=== PATIENT | male | born 2000 | race Hispanic/Latino ===

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

== ENCOUNTER 2018-01-17 20:46 | Inpatient (IN) | payer SELFPAY ==
[~2018-01-17] VITALS: Ht 185.4 cm; Wt 89.0 kg
[2018-01-17 21:33] LABS: IMMATURE GRANULOCYTES 0.3 % (0.0-1.0); MEAN CELL VOLUME 86.9 fL CALC (80.0-100.0); MEAN CORPUSCULAR HGB 29.4 pG CALC (26.0-32.0); MEAN CORPUSCULAR HGB CONC 33.9 g/L CALC (32.0-36.0); NEUT# 5.22 thou/uL (1.82-7.42); RED BLOOD COUNT 2.21 mill/uL (4.70-6.10); RED CELL DISTRI WIDTH 11.9 % (11.5-15.5)
[2018-01-17 21:43] LABS: HEMATOCRIT 19.2 % (39.0-50.0); HEMOGLOBIN 6.5 g/dl (14.0-18.0)
[2018-01-17 21:46] LABS: ALBUMIN 4.2 g/dL (3.2-5.0); BILIRUBIN, TOTAL 0.3 mg/dL (0.0-1.4); TOTAL PROTEIN 6.7 g/dL (6.3-8.2)
[2018-01-17 21:53] LABS: PROTHROMBIN TIME 11.3 SECONDS (9.0-12.5)
[2018-01-17 21:55] LABS: POTASSIUM 5.3 mmol/l (3.5-5.1)
[2018-01-17 21:56] LABS: CREATININE 25.6 mg/dL (0.7-1.3)
[2018-01-17 22:14] LABS: HEMOGLOBIN 6.4 g/dl (14.0-18.0)
[2018-01-17 22:15] LABS: HEMATOCRIT 18.7 % (39.0-50.0)
[2018-01-17 22:17] LABS: TSH, 3RD GENERATION 1.47 uIU/mL (0.47 - 4.68)
[2018-01-17 22:31] LABS: CREATININE 25.9 mg/dL (0.7-1.3)
[2018-01-17 23:16] LABS: URINE BILIRUBIN - DIPSTICK NEGATIVE (NEGATIVE); URINE BLOOD DIPSTICK SMALL (NEGATIVE); URINE CLARITY SL CLOUDY; URINE COLOR YELLOW; URINE GLUCOSE - DIPSTICK 100 mg/dL (NEGATIVE); URINE KETONE NEGATIVE (NEGATIVE); URINE LEUK ESTERASE NEGATIVE (NEGATIVE); URINE NITRITE - DIPSTICK NEGATIVE (Negative); URINE PH 6.5 (4.5-8.0); URINE PROTEIN - DIPSTICK >=300 mg/dL (NEG-TRACE); URINE SPECIFIC GRAVITY 1.015; URINE UROBILINOGEN - DIPSTICK 0.2 E.U./dL (0.2)
[2018-01-17 23:20] LABS: COCAINE NEGATIVE (NEGATIVE); METHADONE NEGATIVE (NEGATIVE); TETRAHYDROCANNABIONOL NEGATIVE (NEGATIVE); TRICYLIC ANTIDEPRESSANTS NEGATIVE (NEGATIVE)
[2018-01-17 23:21] LABS: BARBITURATES NEGATIVE (NEGATIVE); OXCYCODONE NEGATIVE (NEGATIVE)
[2018-01-17 23:27] LABS: URINE BACTERIA FEW hpf; URINE SQUAMOUS EPITHELIAL CELL FEW EPI/hpf (0-FEW)
[2018-01-18] VITALS (32 sets, daily range): BP systolic 152–183; BP diastolic 76–111
[2018-01-18 06:43] LABS: ALBUMIN 3.6 g/dL (3.2-5.0)
[2018-01-18 06:50] LABS: CREATININE 24.6 mg/dL (0.7-1.3)
== END 2018-01-18 10:20 | DRG 683 ==
LOC: ED 20:46 → ED-I 23:00 → ED 01-18 00:06 → ICU 01-18 00:07
PROVIDERS: Emergency Medicine; Internal Medicine Nephrology; ADMIT Internal Medicine; ATTEND Internal Medicine
PROC: 30233N1 Transfusion of Nonautologous Red Blood Cells into Peripheral Vein, Percutaneous Approach (ICD-10-PCS; principal; 2018-01-18)
PROC: 30233N1 Transfusion of Nonautologous Red Blood Cells into Peripheral Vein, Percutaneous Approach (ICD-10-PCS; 2018-01-18)
PROC: 30233N1 Transfusion of Nonautologous Red Blood Cells into Peripheral Vein, Percutaneous Approach (ICD-10-PCS; 2018-01-18)
DX: N17.9 Acute kidney failure, unspecified (principal); E87.2 Acidosis; M62.82 Rhabdomyolysis; E87.5 Hyperkalemia; E83.51 Hypocalcemia; N39.0 Urinary tract infection, site not specified; N05.9 Unspecified nephritic syndrome with unspecified morphologic changes; D64.89 Other specified anemias; I10 Essential (primary) hypertension; Z91.14 Patient's other noncompliance with medication regimen
CPT/HCPCS: P9016

== ENCOUNTER 2018-07-16 00:39 | Emergency (ER) | payer OTHER ==
[~2018-07-16] VITALS: Ht 185.4 cm; Wt 83.0 kg
[2018-07-16] MEDS ORDERED: LISINOPRIL20 MG PO (01:12)
[2018-07-16] MEDS ORDERED: AFEDITAB60 MG PO (01:13)
[2018-07-16] MEDS ORDERED: ALLOPURINOL100 MG PO (01:14)
[2018-07-16] MEDS ORDERED: VIT D-2 (01:15)
[2018-07-16 02:19] VITALS: BP 173/89
== END 2018-07-16 02:20 | disposition home or self-care (01) | DRG 682 ==
LOC: ED 00:39
DX: I12.0 Hypertensive chronic kidney disease with stage 5 chronic kidney disease or end stage renal disease (principal); N18.6 End stage renal disease; Z99.2 Dependence on renal dialysis

== ENCOUNTER 2018-11-11 23:04 | Emergency (ER) | payer BC ==
[~2018-11-11] VITALS: Ht 185.4 cm; Wt 79.1 kg
[~2018-11-11 23:04] MED LIST changes: +AFEDITAB60 MG PO; +ALLOPURINOL100 MG PO; +LISINOPRIL20 MG PO; +VIT D-2
[2018-11-11] MEDS ORDERED: ATENOLOL50 MG PO (23:20)
[2018-11-12] MEDS ORDERED: LISINOPRIL20 MG PO (00:32)
[2018-11-12] MEDS ORDERED: TENORMIN PO (00:32)
[2018-11-12 00:37] VITALS: BP 159/103
== END 2018-11-12 00:37 | disposition home or self-care (01) | DRG 682 ==
LOC: ED 23:04
DX: I12.0 Hypertensive chronic kidney disease with stage 5 chronic kidney disease or end stage renal disease (principal); N18.6 End stage renal disease; Z99.2 Dependence on renal dialysis

== ENCOUNTER 2019-01-27 13:50 | Emergency (ER) | payer BC ==
[~2019-01-27] VITALS: Ht 185.4 cm; Wt 77.5 kg
[~2019-01-27 13:50] MED LIST changes: +ATENOLOL50 MG PO; +TENORMIN PO
[2019-01-27 14:24] LABS: IMMATURE GRANULOCYTES 0.3 % (0.0-5.0); MEAN CORPUSCULAR HGB 30.3 pG CALC (26.0-32.0); MEAN CORPUSCULAR HGB CONC 32.9 g/L CALC (32.0-36.0); NEUT# 8.6 thou/uL (1.82-7.42); RED BLOOD COUNT 4.12 mill/uL (4.70-6.10); RED CELL DISTRI WIDTH 11.9 % (11.5-15.5)
[2019-01-27 14:26] LABS: HEMOGLOBIN 12.5 g/dl (14.0-18.0); MEAN CELL VOLUME 92.2 fL CALC (80.0-100.0)
[2019-01-27 14:59] LABS: ALBUMIN 5.6 g/dL (3.2-5.0); BILIRUBIN, TOTAL 0.9 mg/dL (0.0-1.4); TOTAL PROTEIN 8.6 g/dL (6.3-8.2)
[2019-01-27 15:00] LABS: CREATININE 14.8 mg/dL (0.7-1.3)
[2019-01-27 15:01] LABS: POTASSIUM 6.4 mmol/l (3.5-5.1)
[2019-01-27] MEDS ORDERED: SPIRONOLACTONE50 MG PO (17:12)
[2019-01-27 17:49] LABS: CREATININE 15.3 mg/dL (0.7-1.3)
[2019-01-27 17:50] LABS: POTASSIUM 6.5 mmol/l (3.5-5.1)
[2019-01-27 18:45] VITALS: BP 150/69
== END 2019-01-27 18:45 | DRG 684 ==
LOC: ED 13:50
PROVIDERS: Family Medicine
DX: N18.6 End stage renal disease (principal); I12.0 Hypertensive chronic kidney disease with stage 5 chronic kidney disease or end stage renal disease; Z99.2 Dependence on renal dialysis; E87.5 Hyperkalemia; R10.84 Generalized abdominal pain; R11.2 Nausea with vomiting, unspecified; R19.7 Diarrhea, unspecified; R50.9 Fever, unspecified; R94.31 Abnormal electrocardiogram [ECG] [EKG]

== ENCOUNTER 2019-07-04 22:45 | Emergency (ER) | payer BC ==
[~2019-07-04] VITALS: Ht 185.4 cm; Wt 81.6 kg
[~2019-07-04 22:45] MED LIST changes: +SPIRONOLACTONE50 MG PO
[2019-07-04] MEDS ORDERED: HYDRALAZINE50 MG PO (23:04)
[2019-07-05] MEDS ORDERED: ATENOLOL100 MG PO (01:56)
[2019-07-05 01:58] VITALS: BP 173/96
== END 2019-07-05 01:58 | disposition home or self-care (01) | DRG 305 ==
LOC: ED 22:45
DX: I10 Essential (primary) hypertension (principal)

== ENCOUNTER 2019-10-31 | Emergency (ER) | payer BC ==
[~2019-10-31] MED LIST changes: +ATENOLOL100 MG PO; +HYDRALAZINE50 MG PO
== END 2019-10-31 23:13 | disposition home or self-care (01) | DRG 919 ==
DX: T85.838A Hemorrhage due to other internal prosthetic devices, implants and grafts, initial encounter (principal); N18.6 End stage renal disease; I12.0 Hypertensive chronic kidney disease with stage 5 chronic kidney disease or end stage renal disease; Y83.8 Other surgical procedures as the cause of abnormal reaction of the patient, or of later complication, without mention of misadventure at the time of the procedure; Z99.2 Dependence on renal dialysis

== ENCOUNTER 2021-09-07 19:27 | Emergency (ER) | payer BC ==
[~2021-09-07] VITALS: Ht 185.4 cm; Wt 77.0 kg
[2021-09-07] MEDS ORDERED: CLEOCIN150 M1 PO (21:23)
[2021-09-07 21:50] VITALS: BP 150/90
== END 2021-09-07 21:50 | disposition home or self-care (01) | DRG 157 ==
LOC: ED 19:27
DX: K04.7 Periapical abscess without sinus (principal); I12.0 Hypertensive chronic kidney disease with stage 5 chronic kidney disease or end stage renal disease; N18.6 End stage renal disease; Z99.2 Dependence on renal dialysis